=== PATIENT | female | born 1955 | race Hispanic/Latino ===

== ENCOUNTER 2022-11-20 22:15 | Emergency (ER) | payer MEDICARE ==
[~2022-11-20] VITALS: Ht 160 cm; Wt 78.5 kg
[2022-11-21 02:55] VITALS: BP 191/112; PULSE 80; RESP 18; TEMP 98; O2SAT 98
== END 2022-11-21 02:55 | disposition home or self-care (01) ==
LOC: FSED 23:48
DX: M54.12 Radiculopathy, cervical region (principal); I10 Essential (primary) hypertension; E78.5 Hyperlipidemia, unspecified
CPT/HCPCS: 99282